=== PATIENT | male | born 1940 | race Caucasian/White ===

== ENCOUNTER → 2021-02-03 07:27 | Outpatient (CLI) | payer MEDICARE, OTHER, SELFPAY ==
[2021-02-03 08:17] LABS: Add Manual Diff / Slide Review NO; Basophils Absolute Auto 100 /uL (0-100); Basophils Percent Auto 0.7 % (0-2); Eosinophils Absolute Auto 300 /uL (0-450); Eosinophils Percent Auto 3.8 % (2-4); Hematocrit 43.4 % (41-53); Hemoglobin 14.4 g/dL (13.5-17.5); Lymphocytes Absolute Auto 1500 /uL (1100-4500); Lymphocytes Percent Auto 18.8 % (25-40); Mean Corpuscular HGB Conc 33.1 % (30-36); Mean Corpuscular Hemoglobin 30.9 PG (26-34); Mean Corpuscular Volume 93.2 fL (80-100); Monocytes Absolute Auto 600 /uL (0-900); Neutrophils Absolute Auto 5400 /uL (1500-7000); Neutrophils Percent Auto 68.7 % (50-75); Platelet Count 526 X10^3/uL (150-400); Red Blood Cell Count 4.66 X10^6/uL (4.5-5.9); Red Cell Distribution Width 14.6 % (11.6-14.8); White Blood Cell Count 7.9 X10^3/uL (4.5-11.0)
[2021-02-03 08:28] LABS: Hemoglobin A1C% w Est Avg Glu 5.2 % (4.0-6.0)
[2021-02-07 12:55] LABS: BUN Creatinine Ratio 20.3 (6-22); Blood Urea Nitrogen 14 mg/dL (9-20); Calcium 9.3 mg/dL (8.4-10.2); Carbon Dioxide 37 mmol/L (22-32); Chloride 100 mmol/L (98-107); Estimated Glomerular Filt Rate > 60.0 mL/min (>60); Glucose 90 mg/dL (80-110); HEMOLYSIS < 15 (0-50); Potassium 4.4 mmol/L (3.4-5.1); Sodium 140 mmol/L (137-145)
== END ==
PROVIDERS: PCP Internal Medicine; Referring Provider Orthopaedic Surgery Orthopaedic Surgery of the Spine; Visit Provider Orthopaedic Surgery Orthopaedic Surgery of the Spine
DX: Z01.818 Encounter for other preprocedural examination; R73.9 Hyperglycemia, unspecified; Z01.812 Encounter for preprocedural laboratory examination
CPT/HCPCS: 36415; 80048; 83036; 85025; 93010

== ENCOUNTER → 2021-03-07 11:05 | Outpatient (CLI) | payer MEDICARE, OTHER, SELFPAY ==
[2021-03-07 17:51] LABS: COVID-19 CEPHEID PCR (VTM/NP) Negative (Negative)
== END ==
PROVIDERS: PCP Internal Medicine; Visit Provider Nurse Practitioner
DX: Z20.822 Contact with and (suspected) exposure to COVID-19 (principal)
CPT/HCPCS: C9803; U0003

== ENCOUNTER 2021-03-10 10:56 | Inpatient (IN) | payer MEDICARE, OTHER, SELFPAY ==
[2021-03-06 08:05] VITALS: BMI 23.3
[2021-03-10] VITALS (13 sets, daily range): BP systolic 105–175; BP diastolic 50–84; PULSE 58–75; RESP 10–18; TEMP 35.8–36.6; O2SAT 10–99; BMI 23.3
[2021-03-10] MEDS: LACTATED RINGERS 1,000 ML 42 ML IV ×2 (11:34→16:06)
--- NOTE | 2021-03-10 13:09 | PM.PREOP ---
Pre-operative Note COVID-19 COVID-19 status: Negative Result date/Date tested (Pos, Neg/Pending): 03/08/21 Interval Note History & Physical reviewed/Exam performed by Physician: Yes Changes to H&P: No
[2021-03-10] MEDS: CEFAZOLIN 1 GM VIAL 2 GM IV ×2 (13:50→21:30)
--- NOTE | 2021-03-10 14:14 | SUR.OPER ---
Prone on spine table, head in foam head support, padded chest and pelvic supports, gel pad at knees, lower legs supported by pillows; nipples, genitalia and toes free of pressure, arms secured on foam padded arm boards at <90 degrees abduction. Tape over blanket at thigh secured to table.
[2021-03-10] MEDS: BUPIVACAINE 0.25% (PF) 30 ML, EPINEPHrine 0.3 MG INJ (14:21)
[2021-03-10] MEDS: BUPIVACAINE LIPOSOME 266 MG/20 ML VIAL INJ (14:21)
--- NOTE | 2021-03-10 15:59 | P.OP_ITS ---
Operative Date/Time/Diagnoses Date of procedure: 03/10/21 Time of procedure: 14:00 Pre-op diagnosis: 1. 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 L4-5 spondylosis with radiculopathy Post-op diagnosis: same Procedure & Clinicians Procedure: 1. L4-5 Postero-lateral and posterior interbody fusion 2. L4-5 interbody cage placement. 3. L4-5 decompressive laminectomy with bilateral facetecomies 4. L4-5 Posterior non-segmental instrumentation 5. [place] of bone marrow from iliac crest 6. Utilization of microsurgical technique and operating microscope Same procedure as scheduled: Yes Indications: Patient has been having chronic back pain and worsening lumbar radiculopathy. Patient has been having worsening left leg weakness and pain failing conservative care. Patient has been having difficulty performing activity of daily living. After discussing risks benefits of treatment options, patient elected proceed with surgery. Surgeon: Brian Gray Osteopathy Doctor: Tita Lemons Click Yes if Unassisted: No Anesthesia Type: General Operative Notes Closure Type: primary Specimen(s): none sent Prosthetic devices, grafts, tissues, transplants, or devices: Globus revolve screws, Rise cage Estimated Blood Loss (mL): 50 Blood products transfused: none Procedure in detail: Patient was seen in the preoperative area. Risks and benefits of the surgery was discussed with the patient. Informed consent was obtained from the patient and placed in the chart. Surgical site was marked. Patient was taken to the operative room. General anesthesia was administered. Prophylactic antibiotic was given to the patient less than 30 min before the incision was made. Patient was placed into a prone position on the Jorge table. Patient's back was then prepped and draped in the sterile fashion. Time- out was performed at this time. Using AP and lateral C-arm imaging the interval between L4-5 was identified and marked on patient's back. A 2 inch incision 2 in from midline was made on the left side first. The fascia was incised in line with skin incision. Globus MARS retractors was placed inside the incision and docked onto the L4 lamina. Using microsurgical technique and operating microscope, a L4 laminectomy and L4-5 facetectomy was performed using a Kerrison rongeur. Patient was found have severe foramen stenosis and lateral recess stenosis which required a total L4-5 facetectomy which rendered L4-5 level grossly unstable required a fusion procedure at the same time. The disc space at L4-5 was identified. And a total diskectomy was performed at L4-5 level. The endplates were decorticated using a rasp and shaver. The total diskectomy and decortication was performed at L4-5 level in order to to accomplish a L4-5 fusion. The local bone from the laminectomy and facetectomy was saved for local bone grafting. After the total diskectomy and decortication was completed, Trifecta bone graft material was combined with local bone that was harvested earlier. At this time, a separate skin is incision was made over the iliac crest. A Jamshidi needle was inserted into the iliac crest through a separate skin incision. 5 cc of bone marrow aspiration was obtained through the separate skin incision using a Jamshidi needle from the iliac crest. The bone marrow aspiration was combined with local bone and the Trifecta bone grafting material. The bone grafting material was placed into the L4-5 interbody space along with a expandable cage. The cage was expanded to its maximum height using the torque limiting screwdriver. At this time a mirror image incision was made on the right side. The fascia was incised in line with the skin incision. Globus MARS retractor was inserted and docked onto the L4-5 posterolateral gutter. Using the power drill, posterior- lateral decortication was performed at L4-5 level until bleeding cortical bone was identified. The remaining bone grafting material was placed into the L4-5 posterior lateral gutter he order to accomplish posterolateral fusion at the L4- 5 level. Using the double C-arm technique, pedicle screws were placed into the L4-5 pedicles bilaterally. This was done by placing the Jamshidi needle into the pedicles, then placing the guidewires over the Jamshidi needle, and finally placing the cannulated screws over the guidewires bilaterally. After the pedicle screws were placed, 2 titanium rods was locked into the heads of the pedicle screws using locking caps and torque limiting screwdriver. After all the hardware was placed, and confirmed with AP and lateral C-arm imaging, the wound was then irrigated with sterile normal saline and packed with Ray-Festus gauze for 3 min to accomplish hemostasis. After the gauze was removed the deep fascia was closed with #1 Vicryl suture. The subcutaneous layer was closed with 2-0 Vicryl. The skin was closed with skin roshni. Patient tolerated the procedure well. There were no complications. Complications: none Post-operative Condition: stable Disposition: PACU Plan for aftercare: Admit to inpatient hospital
--- NOTE | 2021-03-10 16:09 | DI.RAD.S_ITS ---
PROCEDURE: XR LUMBAR SPINE 2-3V INDICATIONS: L4-5 TLIF TECHNIQUE: 2 views of the lumbar spine were acquired. COMPARISON: None. FINDINGS: 2 spot fluoroscopic intraoperative images demonstrating L4-L5 posterior spinal fixation hardware with paraspinal ramya and pedicle screws. There is also interbody cage graft. Expected intraoperative alignment. Dictated by: Mart Roche M.D. on 03/10/2021 at 16:22 Approved by: Mart Roche M.D. on 03/10/2021 at 16:23
[2021-03-10] MEDS: fentaNYL 100 MCG/2 ML INJ IV (16:34)
[2021-03-10] MEDS: HYDROMORPHONE 2 MG INJ IV (16:49)
[2021-03-10] MEDS: OXYCODONE IR 5 MG TABLET PO (17:12)
[2021-03-10] MEDS: DOCUSATE 100 MG CAPSULE PO (20:16)
[2021-03-10] MEDS: METOPROLOL IR 50 MG TABLET PO (20:16)
[2021-03-10] MEDS: TAMSULOSIN 0.4 MG CAPSULE PO (20:16)
[2021-03-10] MEDS: ATORVASTATIN 20 MG TABLET 10 MG PO (20:16)
[2021-03-11] VITALS: BP 156/73; PULSE 71; RESP 16; TEMP 36.9; O2SAT 95
[2021-03-11] MEDS: CEFAZOLIN 1 GM VIAL 2 GM IV (05:44)
[2021-03-11] MEDS: SODIUM CHLORIDE 0.9% FLUSH 10 ML IV ×2 (05:44→08:52)
[2021-03-11 05:49] VITALS: BP 129/62; PULSE 66; RESP 16; TEMP 36.7; O2SAT 98
[2021-03-11 08:00] VITALS: BP 130/59; PULSE 68; RESP 16; TEMP 36.8; O2SAT 99
[2021-03-11] MEDS: hydroCHLOROthiazide 25 MG TABLET PO (08:45)
[2021-03-11] MEDS: OXYCODONE IR 5 MG TABLET 10 MG PO (08:46)
[2021-03-11] MEDS: ACETAMINOPHEN 325 MG TABLET 650 MG PO (08:46)
[2021-03-11] MEDS: DOCUSATE 100 MG CAPSULE PO (08:46)
[2021-03-11] MEDS: METOPROLOL IR 50 MG TABLET PO (08:47)
--- NOTE | 2021-03-11 10:16 | OT.IP.EVAL ---
Current Diagnoses Spinal stenosis, lumbar region without neurogenic claudication (03/10/21) Intervertebral disc disorders with radiculopathy, lumbar region (03/10/21) Surgery Performed Operation Date: 03/10/21 12:45 Actual Procedures p L4-5 TLIF - Brian Gray MD Past Medical History (Last Reviewed 03/11/21 @ 11:03 by Tita Lemons PA-C) Arthritis Elevated PSA Former smoker History of bilateral carpal tunnel release HLD (hyperlipidemia) HTN (hypertension) Hx of arthroscopy of left knee Hx of colonoscopy Hx of fusion of cervical spine (10/15/14) Hx of prostate biopsy (09/2014) Hx of tonsillectomy Impaired hearing Rheumatic fever Surgical History (Last Reviewed 03/11/21 @ 11:03 by Tita Lemons PA-C) History of bilateral carpal tunnel release Hx of arthroscopy of left knee Hx of colonoscopy Hx of fusion of cervical spine (10/15/14) Hx of prostate biopsy (09/2014) Hx of tonsillectomy Occupational Therapy Inpatient Evaluation/Re-Eval M1 PT/OT-IP Prior Functional Status Start: 03/11/21 10:51 Freq: NEEDED Status: Active Protocol: Document 03/11/21 09:45 [facility] (Rec: 03/11/21 11:09 [facility] [id number]) Medical Review Prior Functional Status Medical History Reviewed Yes Communication Independent Mobility and Gait Pt states 3 months ago had 5 falls in a day and then had to use 4ww and was given steriods and then was using a hurry cane for safety and now recently was has not been using any device to walk with. Activities of Daily Living and IADL's Pt states was completely independent with all ADl and IADL needs. Social History Household Members spouse Living Arrangements House Number of Floors (Floors) One Floor Number of Stairs To Enter/Railing? 2 steps with bilateral rails Home Environment Standard Height Toilet,Walk in Shower Home Equipment Front Wheel Walker,Straight Cane,Shower Seat with Backrest ,Hand Held Shower,Long Handled Sponge,Long Handled Shoe Horn ,Photograph Printer,Grab Bars In Shower Additional Social History Comment Pt has a hurry cane. M2 OT-IP Current Condition Start: 03/11/21 10:51 Freq: Status: Active Protocol: Document 03/11/21 09:45 [facility] (Rec: 03/11/21 11:09 [facility] [id number]) Occupational Therapy Current Condition Current Condition Evaluation Date 03/11/21 Treatment Diagnosis S/p L4-5 TLIF, decreased self care Diagnosis Onset Date 03/10/21 Post Operative Precautions Lumbar Precautions Log Roll,No Twisting,Limit Bending,Lifting Restriction of 10 lbs,Gait Belt above Incisional Area M3 OT- IP Subjective and Pain Start: 03/11/21 10:51 Freq: Status: Active Protocol: Document 03/11/21 09:45 [facility] (Rec: 03/11/21 11:09 [facility] [id number]) OT- Subjective Occupational Therapy Visit Type Type Initial Evaluation Visit Start Time 09:45 Visit Stop Time 10:16 Total Visit Minutes 31 Occupational Therapy Visit Comments Patient Comments Pt agreed to get up for Ot eval. Patient/Caregiver Goals TO go home. OT Pain Assessment Pain When Pain Assessed At Rest Pain Present Pain Present Pain Reported Location back Intensity 1 Scale Used Numeric (0 - 10) M4 OT- IP ADL's Start: 03/11/21 10:51 Freq: Status: Active Protocol: Document 03/11/21 09:45 [facility] (Rec: 03/11/21 11:09 [facility] [id number]) OT [id number] General Evaluation Self-Feeding Ability Independent OT ADL-Grooming General Evaluation Grooming Ability Standby Assistance Areas Needing Assistance Retrieving/Set-up of Grooming Items Comments OT Grooming Comments Pt able to stand at the sink with 4ww for grooming needs. OT ADL-Oral Care General Eval Oral Care Ability Standby Assistance Comments Oral Care Comments Pt educated to hinge at his hips to spit into the sink or spit into a cup to best follow his back precautions. OT ADL-Dressing General Eval Lower Body Dressing Ability Maximum Assistance Comments OT Dressing Comments Pt able to practice use of transfer pumper and sock aid for LB dressing needs. Pt states his to assist him for his needs and would continuous pickling line pickler helper a sock aid if needed. OT ADL-Toileting General Evaluation Toileting Ability Standby Assistance Comments OT Toileting Comments Pt able to simulate wiping while sitting on the toilet and able to follow his back precautions with good safety. OT ADL-Bathing Comments OT Bathing Comments Pt not wanting to shower at this time. Pt has shower chair with back and armrests and HHSP at home to use in addition that his is able to assist him. M5 OT- IP IADL's Start: 03/11/21 10:51 Freq: Status: Active Protocol: Document 03/11/21 09:45 [facility] (Rec: 03/11/21 11:09 [facility] [id number]) OT-Instrumental Activities of Daily Living Home Safety Awareness Awareness of Need for Assistance at Home Good Awareness Ability to Problem Solve Emergency Able to Problem Solve Situations Home Safety Comments Pt's to provide supervision and assist for all needs as needed. M6 OT- IP Functional Cognition Start: 03/11/21 10:51 Freq: Status: Active Protocol: Document 03/11/21 09:45 [facility] (Rec: 03/11/21 11:09 [facility] [id number]) Cognitive Factors Limiting Selfcare Function Cognitive Ability Level of Alertness Alert Patient Orientation Name,Age,Birthday,Month,Date, Year,Day of Week,Place, Situation Attention Span Ability Capable of Focused Attention, Capable of Sustained Attention Ability to Follow Commands Able to Follow Multi-Step Commands Memory Description No Deficits Noted Safety Awareness Decreased Ability to Apply Precautions,Underestimates Need for Assistance Cognitive Comments Cognitive Assessment Comments Pt needing reminders to incorporate his back precautions and to be careful not to twist and slow down. OT- Vision and Hearing OT- Hearing Assessment OT- Hearing Assessment WFL OT- Vision Assessment Vision Assessment Comments Glasses for watching TV. M7 OT- IP Mobility and Balance Start: 03/11/21 10:51 Freq: Status: Active Protocol: Document 03/11/21 09:45 [facility] (Rec: 03/11/21 11:09 [facility] [id number]) OT- Bed Mobility Assessment Rolling Type of Rolling Roll to Right Level of Assistance Standby Assistance Supine to Sit Supine to Sit Assist Standby Assistance Sit to Supine Sit to Supine Assist Standby Assistance Scooting Scooting to Edge of Bed Standby Assistance OT-Transfer Assessment Sit to and From Stand Sit to and from Stand Contact Guard Assistance Transfers Transfer Ability Contact Guard Assistance Technique Transfer Destination Bed,Chair Transfer Technique Stand Step Pivot Devices Transfer Assistive Devices Gait Belt,Tripod Cane/Hurry Cane,4 Wheeled Walker Comments Mobility Comments VC for log rolling to get into and out of the bed. VC to push up from the bed to stand. Pt needing CGA with 4ww and CGA/close SBA with hurry cane. OT- Balance Assessment Sitting Balance and Reactions Static Sitting Balance Ability Normal Dynamic Sitting Balance Ability Good Standing Balance and Reactions Static Standing Balance Ability Good Dynamic Standing Balance Ability Fair M8 OT- IP Objective Assessments Start: 03/11/21 10:51 Freq: Status: Active Protocol: Document 03/11/21 09:45 [facility] (Rec: 03/11/21 11:09 [facility] [id number]) OT-Muscle Tone Assessment Muscle Tone WNL Yes M9 OT- IP Assessment and Plan Start: 03/11/21 10:51 Freq: Status: Active Protocol: Document 03/11/21 09:45 [facility] (Rec: 03/11/21 11:09 [facility] [id number]) OT Summary Assessment and Plan Potential Rehabilitation Potential Excellent Analytic Complexity at Evaluation Low Summary OT Impairments Pain,Balance,Functional Cognition,Functional Mobility, Grooming,Dressing,Toileting, Bathing,Toilet Transfers, Shower Transfers Progress Towards Goals Progressing Toward Goals Assessment Summary Pt low complexity and main barrier are steps, pt needing to slow down and incorporate his back precautions , and needing assist for dressing and bathing needs. Pt states has a supportive to be able to assist him for all his ADl and IADl needs. Goals Grooming Goal Independent Dressing Goal Minimal Assistance Toileting Goal Independent Bathing Goal Standby Assistance Toilet Transfer Goal Independent Shower Transfer Goal Independent Patient/Caregiver Education Goal Demonstrate Post-Op Precautions Days to Meet Goals 4 Frequency of Treatment Frequency Of Treatment Once a Day Treatment Plan OT Treatment Plan ADL Training,Functional Mobility,Patient/Family Education,Discharge Planning Other Treatment Recommendations and Next shower Treatment Focus Discharge Recommendations OT Discharge Recommendations Home with Assistance Transportation Needs at Discharge Private Vehicle
--- NOTE | 2021-03-11 10:30 | PT.IIE ---
Current Diagnoses Spinal stenosis, lumbar region without neurogenic claudication (03/10/21) Intervertebral disc disorders with radiculopathy, lumbar region (03/10/21) Surgery Performed Operation Date: 03/10/21 12:45 Actual Procedures p L4-5 TLIF - Brian Gray MD Medical History (Last Reviewed 03/11/21 @ 11:03 by Tita Lemons PA-C) Arthritis Elevated PSA Former smoker HLD (hyperlipidemia) HTN (hypertension) Impaired hearing Rheumatic fever Physical Therapy Inpatient Evaluation/Re-Eval M1 PT/OT-IP Prior Functional Status Start: 03/11/21 10:51 Freq: NEEDED Status: Active Protocol: Document 03/11/21 10:30 [facility] (Rec: 03/11/21 12:02 AB [id number]) Medical Review Prior Functional Status Medical History Reviewed Yes Communication able to make needs known Mobility and Gait pt stated that he is independent with all mobilities and ambulation without AD; h/o falls with L knee giving out ~ 5 weeks ago Social History Household Members spouse Living Arrangements House Number of Floors (Floors) One Floor Number of Stairs To Enter/Railing? 2 steps with B rails to enter the house Home Environment Standard Height Toilet,Walk in Shower Home Equipment Four Wheel Walker,Shower Seat with Backrest,Hand Held Shower ,Long Handled Sponge,Long Handled Shoe Horn,Veneer Marker,Grab Bars In Shower Additional Social History Comment Pt has a hurry cane M2 PT-IP Current Condition Start: 03/11/21 10:51 Freq: NEEDED Status: Active Protocol: Document 03/11/21 10:30 [facility] (Rec: 03/11/21 12:02 AB [email or web address]) Physical Therapy Current Condition Current Condition Evaluation Date 03/11/21 Treatment Diagnosis s/p L4-5 TLIF; difficulty in walking Onset Date 03/10/21 M3 PT-IP Subjective Start: 03/11/21 10:51 Freq: NEEDED Status: Active Protocol: Document 03/11/21 10:30 [facility] (Rec: 03/11/21 12:02 AB [email or web address]) Subjective Physical Therapy Visit Type Type Initial Evaluation Visit Start Time 10:55 Visit Stop Time 11:35 Total Visit Minutes 40 Number of RECORD TESTER Visits 0 Physical Therapy Visit Comments Patient Comments agreeable to do PT Therapy Pain Assessment Pain When Pain Assessed At Rest Pain Present Pain Present Pain Reported Location back Scale Used stated soreness and not pain M4 PT-IP Mobility and Gait Start: 03/11/21 10:51 Freq: NEEDED Status: Active Protocol: Document 03/11/21 10:30 [facility] (Rec: 03/11/21 12:02 AB [id number]) PT-Bed Mobility Assessment Rolling Type of Rolling Log Rolling Level of Assist Standby Assistance Supine to Sit Supine to Sit Standby Assistance Sit to Supine Sit to Supine Standby Assistance PT-Transfer Assessment Sit to and From Stand Sit to and from Stand Independent Equipment Transfer Assistive Device Gait Belt,Tripod Cane/Hurry Cane Orthotic/Prosthetic Devices or Brace: No Transfers Transfer Destination Bed Transfer Technique ambulated using hurrycane Transfer Ability Level of Assist Standby Assistance,Use of Upper Extremities Comments Mobility Comments pt able to recall back precautions. completed sit to stand from chair SBA and ambulated in room usin g hurrycane SBA. ambulated to bed and completed log roll bed mobility sit<>supine SBA. pt agreed to ambulate in the hallway and completed ~ 250 ft using hurrycane SBA. completed up/down steps using 1 rail and hurrycane SBA. pt ambulated back to his room using hurrycane SBA. antalgic gait but without LOB. cued to slow down for safety. ambulated short distance in room without AD ~ 20 ft SBA. pt left sitting on chair. call light and table placed within reach. educated pt on safety and continued use of hurrycane especially with outdoor mobility and long distance ambulation. pt agreed. Gait Assessment Gait Gait Assistance Required: Standby Assistance Distance (Feet) 250 Able to Maintain Weight Bearing Status Yes During Gait Assistive Devices Assistive Device Gait Belt,Tripod Cane/Hurry Cane Orthotic/Prosthetic Devices or Brace: No Gait Deviations General Gait Pattern Antalgic Factors Limiting Gait Function Factors Limiting Gait Function Decreased Activity Tolerance, Decreased Strength,Limited Range of Motion,Pain,Poor Balance Stair Climbing Assessment Evaluation Level of Assist On Stairs Standby Assistance Devices Stair Climbing Assistive Devices Tripod Cane/Hurry Cane,Left Railing Technique/Endurance Stair Climbing Direction Ascend and Descend Stair Climbing Technique Step to Step Number of Steps Climbed 3 Query Text: Stair Climbing Set # Repetitions (reps) 1 PT-Balance Assessment Sitting Balance and Reactions Static Sitting Balance Ability Normal Dynamic Sitting Balance Ability Normal Standing Balance and Reactions Static Standing Balance Ability Normal Dynamic Standing Balance Ability Good M5 PT-IP Objective Assessments Start: 03/11/21 10:51 Freq: NEEDED Status: Active Protocol: Document 03/11/21 10:30 [facility] (Rec: 03/11/21 12:02 AB [id number]) Orientation Orientation/Cognition Level of Alertness Alert Orientation Name,Age,Birthday,Month,Date, Year,Day of Week,Place, Situation Language Function Ability No Deficits Noted Safety Awareness Decreased Safety Awareness Memory Description No Deficits Noted Gross Range of Motion Lower Extremity ROM Assessment Within Functional Limits Strength Lower Extremity Strength Assessment Within Functional Limits Coordination Assessment Gross Coordination Gross Coordination WNL Sensation Assessment Sensation Gross Sensation WNL Muscle Tone Muscle Tone WNL Yes M6 PT-IP Treatment Start: 03/11/21 10:51 Freq: NEEDED Status: Active Protocol: Document 03/11/21 10:30 AB (Rec: 03/11/21 12:02 AB [id number]) Physical Therapy Treatment Education Education Provided Precautions,Weight Bearing Status,Safety M7 PT-IP Assessment and Plan Start: 03/11/21 10:51 Freq: NEEDED Status: Active Protocol: Document 03/11/21 10:30 AB (Rec: 03/11/21 12:02 AB [id number]) PT Summary Assessment and Plan Potential Rehabilitation Potential Good Status of Condition at Evaluation Stable Summary Impairments Pain,ROM,Strength,Balance, Coordination,Sensation,Tone, Cognition,Bed Mobility, Transfers,Gait,Activity Tolerance Assessment Summary pt requiring SBA with mobility using hurrycane and plans to go home with spouse to assist him as needed. pt may go home when medically stable. Goals Bed Mobility Goal Independent Transfer Goal Independent,Front Wheeled Walker Gait Goal Independent,Front Wheel Walker Gait Distance 300 Other Goals up/down 2 steps 1 rail mod I ambulation without AD SBA 150 ft Days to Meet Goals 3 Frequency of Treatment Frequency Of Treatment Twice a Day Treatment Plan Physical Therapy Treatment Plan Bed Mobility Training,Transfer Training,Gait Training, Therapeutic Exercise,Balance Retraining,Post Op Education, Discharge Planning,Hot or Cold Pack,Neuromuscular Re-ed, Coordination Retraining,Manual Therapy Precautions Lumbar Precautions Log Roll,No Twisting,Limit Bending,Lifting Restriction of 10 lbs,Gait Belt above Incisional Area Recommendations To Nursing Amount of Assist Needed Standby Assistance Discharge Recommendations PT Discharge Recommendations Home with Assistance Transportation Needs at Discharge Private Vehicle
[2021-03-11 10:57] VITALS: BP 146/72; PULSE 69; RESP 18; TEMP 36.6; O2SAT 95
--- NOTE | 2021-03-11 11:01 | P.DS_ITS ---
History of Present Illness History of Present Illness Date Patient Seen: 03/11/21 Time Patient Seen: 11:01 Chief complaint: Low back pain s/p TLIF Narrative: The patient is complaining of mild low back pain this morning. He has worked with physical therapy. Overall he is feeling great we will like to be discharged home. He notes his longstanding numbness in his left leg is resolving since surgery. Denies any nausea or vomiting. No fevers, chills, night sweats. Discharge Providers Provider Discharge Date: 03/11/21 Primary care physician: Carlos Carbajal MD Consults: 03/10/21 17:25 Consult to Occupational Therapy Evaluate & Treat Comment: Physician Instructions: Evaluate and treat Consult to Physical Therapy Evaluate & Treat Comment: Physician Instructions: Evaluate and Treat Discharge provider: Tita Lemons PA-C Summary Hospital Course Discharge Diagnosis: 1. 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 L4-5 spondylosis with radiculopathy Hospital Course: 03/10/21 Time of procedure: 14:00 Procedure & Clinicians Procedure: 1. L4-5 Postero-lateral and posterior interbody fusion 2. L4-5 interbody cage placement. 3. L4-5 decompressive laminectomy with bilateral facetecomies 4. L4-5 Posterior non-segmental instrumentation 5. [place] of bone marrow from iliac crest 6. Utilization of microsurgical technique and operating microscope Same procedure as scheduled: Yes Indications: Patient has been having chronic back pain and worsening lumbar radiculopathy. Patient has been having worsening left leg weakness and pain failing conservative care. Patient has been having difficulty performing activity of daily living.? After discussing risks benefits of treatment options, patient elected proceed with surgery. Surgeon: Brian Gray Terminal Gauger: Tita Lemons Click Yes if Unassisted: No Anesthesia Type: General Operative Notes Closure Type: primary Specimen(s): none sent Prosthetic devices, grafts, tissues, transplants, or devices: Globus revolve screws, Rise cage Estimated Blood Loss (mL): 50 Blood products transfused: none Status at Discharge Cognitive/behavioral status at discharge: oriented Functional status at discharge: uses cane/walker Overall status at discharge: patient is progressing back to baseline Exam Vital Signs (past 8 hours): - 03/11/21 05:49 03/11/21 08:00 03/11/21 10:57 Temperature 98.1 F 98.3 F 98 F Pulse Rate 66 68 69 Respiratory Rate 16 16 18 Blood Pressure 129/62 130/59 L 146/72 H Pulse Oximetry 98 99 95 Oxygen Delivery Method Room Air Oxygen Flow Rate 0 Narrative Exam Narrative: Pleasant 80-year-old male, resting comfortably in his chair, no acute distress. Dressing has some serosanguineous drainage. No surrounding induration or erythema. Bilateral lower extremity motor functions are grossly intact. He has grossly intact light sensation in bilateral lower extremities. Bilateral calves are soft, nontender palpation. [facility] Medical History Arthritis Elevated PSA Former smoker HLD (hyperlipidemia) HTN (hypertension) Impaired hearing Rheumatic fever Surgical History History of bilateral carpal tunnel release Hx of arthroscopy of left knee Hx of colonoscopy Hx of fusion of cervical spine (10/15/14) Hx of prostate biopsy (09/2014) Hx of tonsillectomy Social History household members: spouse Smoking Status: Former smoker alcohol intake: never Discharge Assessment & Plan Assessment and Plan Plan of Treatment: Stable status post TLIF -mobilize with PT. Limit bending, lifting, twisting. Weightbearing as tolerated from a walker -continue with current pain regimen -DC home today when cleared by PT Discharge Plan Discharge Plan Patient Disposition: Home Discharge orders & Medications Discharge Orders: Discharge (Order); Ordered 03/11/21 Ordered By: Tita Lemons Prescriptions: New acetaminophen 500 mg capsule 500 mg PO Q4H MDD Max 6 tabs per day PRN (Reason: Pain, Mild (1-3)) Qty: 90 RF: 0 docusate sodium 100 mg Capsule 100 mg PO BID PRN (Reason: Constipation from the narcotic pain meds) Qty: 30 RF: 0 oxycodone 5 mg Tablet 5 mg PO Q3HR PRN (Reason: Pain, Severe (7-10)) Qty: 42 RF: 0 Continued aspirin 81 mg Tablet,Delayed Release (Dr/Ec) 81 mg PO BID RF: 0 tamsulosin 0.4 mg Capsule 0.4 mg PO BEDTIME RF: 0 simvastatin 20 mg Tablet 20 mg PO QPM RF: 0 metoprolol tartrate 50 mg Tablet 50 mg PO BID RF: 0 hydrochlorothiazide 25 mg Tablet 25 mg PO DAILY RF: 0 PreserVision AREDS-2 250-90-40-1 mg Capsule 1 tab PO BID RF: 0 Follow up/Referrals: Carlos Carbajal MD [Primary Care Provider] - Brian Gray MD [Physician] - (10-14 days for postoperative visit) Diet/Activity/Treatments Diet: Diet as Tolerated and Regular Other treatments: Medications: -OTC Tylenol 500 mg 1 tablet every 4 hours as needed for pain/fever. Max 6 tablets per day. -Oxycodone 5 mg take 1-2 tablets every 4 hours as needed for moderate-severe pain (narcotic pain medication). -As needed medications: -Ducolax and /or MiraLax as needed for constipation from narcotic pain medications. -Pepcid AC as needed for stomach upset. Dressing/Wound care: -Keep dressing in place until postoperative follow-up office visit. -Okay to shower after 48 hours. Keep wound out of direct water stream. Use PressNSeal to protect from water. No soaking or submerging until all the scabs fall off (approximately 6 weeks). -Please call the office if dressing becomes wet, soiled, or saturated. Activities: -Limit bending, lifting, twisting. -Weight-bearing as tolerated. Use front wheeled walker, and progress to cane when safe. -Continue with home exercises as directed by your physical therapist. -Elevate ?toes above the nose if you have significant swelling in your lower leg. (A wedge pillow is easiest.) -Ice your incision as needed for pain/inflammation/swelling. Protect your skin with a folded pillowcase. Follow-up: -Follow-up with your surgeon or PA in the office in 10-14 days after surgery. -Follow-up with your surgeon 6 weeks postoperatively. Call the office if you have chest pain, shortness of breath, significant swelling that will not resolve with elevating, fever over 101?, significantly worsening pain. [facility]: [phone] Skin/Wound/Dressing Care Report to your healthcare provider any signs of infection, such as:: chills, fever, night sweats, unusual drainage and unusual redness Visit Report/Discharge Packet Instructions: DI for Transforaminal Lumbar Interbody Fusion Stand Alone Forms: Surgery Discharge Discharge Data Primary Care Provider: Carlos Carbajal Attending Provider: Brian Gray
--- NOTE | 2021-03-11 13:09 | PC.NURSE ---
Discharge note: discharged home, reviewed discharge instructions including stroke signs and symptoms, signs and symptoms of infection, care of dressing, follow up appts, medication to continue, pain medication scripts. All belongings with patient. IV discontinued. Wheeled to car in wheelchair.
== END 2021-03-11 12:40 | disposition home or self-care (01) | DRG 455 ==
LOC: AC 10:56
PROVIDERS: Admitting Provider Orthopaedic Surgery Orthopaedic Surgery of the Spine; PCP Internal Medicine; Referring Provider Internal Medicine; Visit Provider Orthopaedic Surgery Orthopaedic Surgery of the Spine
PROC: 0SG00AJ Fusion of Lumbar Vertebral Joint with Interbody Fusion Device, Posterior Approach, Anterior Column, Open Approach (ICD-10-PCS; principal; 2021-03-10 12:45)
DX: M48.061 Spinal stenosis, lumbar region without neurogenic claudication (principal); M47.26 Other spondylosis with radiculopathy, lumbar region; M51.16 Intervertebral disc disorders with radiculopathy, lumbar region; Z20.822 Contact with and (suspected) exposure to COVID-19; E78.5 Hyperlipidemia, unspecified; I10 Essential (primary) hypertension; Z87.891 Personal history of nicotine dependence
CPT/HCPCS: 72100; 76000; 97161; 97165; 97535; C1776; C9803; U0003; C9290; J0171; J0690; J1100; J1170; J2405; J2704; J3010